=== PATIENT | male | born 1960 | race Caucasian/White ===

== ENCOUNTER 2018-07-07 10:41 | Observation (INO) ==
[2018-07-07] MEDS ORDERED: NITROGLYCERIN 2% OINTMENT 30GM TUBE EXT ONE (11:18)
--- NOTE | 2018-07-07 11:24 | Emergency Department Note ---
History of Present Illness General Chief complaint: Chest Pain Time Seen by Provider: 07/07/18 11:06 History of Present Illness Maximum Pain Intensity: 5 This is a 58-year-old male presenting to the emergency department with left- sided chest pain for the past 4-5 hours. The patient states that he awoke this morning around 6 AM and by 6:30 AM he began having heart palpitations. He stat es that his heart was racing around 110-120 bpm. This lasted for 15-20 minutes before resolving. He states after the episode of palpitations he began having a dull, heavy, nonradiating left-sided chest pain. The patient does have a history of heart attacks with 2 coronary stents 3 or 4 years ago. The patient is a every day smoker. He does not have recent travel history. He does also report a history of anxiety, and while this was going on he had numbness in his hands bilaterally. The patient also admits to trying methamphetamine for the first time last night, however this was greater than 10 hours before symptoms started. The patient rates his current discomfort a 5/10. He did take 325+324 mg aspirin prior to arrival. He drove himself to a local urgent care clinic, where he called EMS, and was given 3 doses of nitroglycerin. This did mildly improve his symptoms, however they persist. He does not have recent illness. Home Medications Home Medications Medication Instructions Recorded Confirmed Type atorvastatin [Lipitor] 40 mg PO DAILY 07/07/18 07/07/18 History carvedilol [Coreg] 6.25 mg PO BID 07/07/18 07/07/18 History oxycodone-acetaminophen 1 tab PO Q6H PRN 07/07/18 07/07/18 History prasugrel [Effient] 10 mg PO DAILY 07/07/18 07/07/18 History atorvastatin 40 mg PO DAILY 30 Days #30 tab 07/08/18 Rx metoprolol succinate 25 mg PO QAM 30 Days #30 tab 07/08/18 Rx nitroglycerin [Nitrostat] 0.4 mg SUBLINGUAL .q5min PRN #7 tab 07/08/18 Rx pantoprazole 40 mg PO QAM 30 Days #30 tab 07/08/18 Rx quetiapine 25 mg PO HS 30 Days #30 tab 07/08/18 Rx ramipril 5 mg PO BID 30 Days #60 cap 07/08/18 Rx tamsulosin 0.4 mg PO HS 30 Days #30 cap 07/08/18 Rx Allergies Allergy/AdvReac Type Severity Reaction Status Date / Time ciprofloxacin AdvReac Unknown Unverified 07/07/18 14:43 Past Med/Surg History Medical History Right hip pain (Acute) Surgical History Stented coronary artery Social History Preferred Language: Occitan Communication Ability: Effective Beliefs That Will Affect Care: None Current Living Situation: Alone Other Information That Helps Us Care for You: No Feels Safe at Home: Yes Safety Concerns: Feels Safe At This Time Smoking Status: Current every day smoker Hx Alcohol Use: Yes (2-3 beers a day about 3-4x/week) Hx Substance Use: Yes (as above) Review of Systems A total of 10 systems reviewed and were otherwise negative Physical Exam Vital Signs Vital Signs - 24 hr 07/07/18 13:00 07/07/18 13:30 07/07/18 14:00 Temperature Temperature Source Pulse Rate 94 H 91 H 90 Pulse Rate [Left] Pulse Rate from SpO2 Sensor 96 H 89 91 H Respiratory Rate 19 18 20 Respiratory Effort / Characteristics Respiratory Depth Respiratory Pattern Blood Pressure 148/94 H 142/99 H 143/92 H Blood Pressure [Right Arm] Blood Pressure Mean 112 113 109 Blood Pressure Mean [Right Arm] Pulse Oximetry 97 96 96 Oxygen Delivery Method 07/07/18 14:30 07/07/18 15:47 07/07/18 16:11 Temperature 36.5 C Temperature Source Oral Pulse Rate 98 H Pulse Rate [Left] 83 Pulse Rate from SpO2 Sensor 102 H Respiratory Rate 18 20 Respiratory Effort / Characteristics Non-Labored Spontaneous Respiratory Depth Normal Respiratory Pattern Regular Blood Pressure 145/98 H Blood Pressure [Right Arm] 135/88 Blood Pressure Mean 113 Blood Pressure Mean [Right Arm] 103 Pulse Oximetry 95 98 Oxygen Delivery Method Room Air 07/07/18 17:58 07/07/18 23:00 07/08/18 01:13 Temperature 36.8 C Temperature Source Oral Pulse Rate 79 96 H Pulse Rate [Left] 91 H Pulse Rate from SpO2 Sensor Respiratory Rate 17 Respiratory Effort / Characteristics Respiratory Depth Respiratory Pattern Blood Pressure Blood Pressure [Right Arm] 122/80 Blood Pressure Mean Blood Pressure Mean [Right Arm] 94 Pulse Oximetry 97 Oxygen Delivery Method Room Air 07/08/18 03:00 07/08/18 07:12 07/08/18 08:56 Temperature 36.9 C 36.6 C Temperature Source Oral Oral Pulse Rate 82 Pulse Rate [Left] 82 80 Pulse Rate from SpO2 Sensor Respiratory Rate 17 18 Respiratory Effort / Characteristics Respiratory Depth Respiratory Pattern Blood Pressure Blood Pressure [Right Arm] 122/82 147/97 H Blood Pressure Mean Blood Pressure Mean [Right Arm] 95 113 Pulse Oximetry 96 98 Oxygen Delivery Method VITALS: Vitals are noted on the nurse's note and reviewed by myself. Vital signs stable. GENERAL: Well-developed, well-nourished, white male, who is in no acute distress and resting comfortably. Patient is cooperative with the examination. HEAD: Normocephalic atraumatic. EYES: Pupils equal round and reactive to light and accommodation. Conjunctivae without injection, sclerae without icterus. Extraocular movements intact. NOSE: Patent, turbinates without inflammation or discharge. MOUTH: Mucous membranes moist. Tonsils are not enlarged. Pharynx without erythema, blood, or exudate. Uvula midline. Airway patent. NECK: Supple without nuchal rigidity. No lymphadenopathy. No thyromegaly. Cervical spine is nontender. HEART: Regular rate and rhythm without murmurs gallops or rubs. LUNGS: Clear to auscultation bilaterally without wheezes, rales or rhonchi. No retractions or accessory muscle use. ABDOMEN: Positive normal bowel sounds x 4. Soft, nontender, without masses or organomegaly. No guarding or rebound tenderness. MUSCULOSKELETAL: No muscle atrophy, erythema, or edema noted. Full range of motion in all extremities. No tenderness to palpation. Normal gait. Strength 5/5 throughout. NEURO: Patient was alert and oriented to person place and time. CN II through XII grossly intact. SKIN: The skin was without rashes, erythema, edema, or bruising. Capillary refill less than 2 seconds. Course Administered Medications Atorvastatin Calcium (Lipitor) 40 mg PO DAILY [facility] Stop: 08/07/18 08:59 Last Admin: 07/08/18 09:28 Dose: 40 mg Documented by: [id number] Admin: 07/07/18 20:48 Dose: 40 mg Documented by: [id number] Enalapril Maleate (Vasotec) 20 mg PO BID [facility] Stop: 08/06/18 20:59 Last Admin: 07/08/18 08:16 Dose: 20 mg Documented by: [id number] Admin: 07/07/18 20:48 Dose: Not Given Documented by: [id number] Miscellaneous (Remove Nicoderm Patch) 1 ea N/A HS [facility] Stop: 08/06/18 20:59 Last Admin: 07/07/18 20:50 Dose: Not Given Documented by: [id number] Nicotine ([facility]oderm Cq) [facility] Stop: 08/06/18 17:44 Last Admin: 07/08/18 08:16 Dose: 21 mg Documented by: [id number] Admin: 07/07/18 18:38 Dose: 21 mg Documented by: [id number] Pantoprazole Sodium (Protonix) 40 [facility] Stop: 07/11/18 09:01 Last Admin: 07/08/18 12:24 Dose: 40 mg Documented by: [id number] Discontinued Medications Carvedilol (Coreg) 6.25 mg PO BID [facility] Stop: 08/06/18 20:59 Last Admin: 07/08/18 08:16 Dose: 6.25 mg Documented by: [id number] Admin: 07/07/18 20:49 Dose: 6.25 mg Documented by: [id number] Sodium Chloride (Nss 1000ml) 1,000 mls @ 999 mls/hr IV .Q1H1M [facility] Stop: 07/07/18 12:30 Last Infusion: 07/07/18 12:49 Dose: 0 mls/hr Documented by: [id number] Admin: 07/07/18 11:39 Dose: 999 mls/hr Documented by: [id number] Nitroglycerin (Nitro-Bid 2%) 1 inch EXT NOW ONE Stop: 07/07/18 11:19 Last Admin: 07/07/18 11:39 Dose: 1 inch Documented by: [id number] Prasugrel (Effient) 10 mg PO DAILY [facility] Stop: 08/07/18 08:59 Last Admin: 07/08/18 08:16 Dose: 10 mg Documented by: [id number] Tamsulosin HCl (Flomax) 0.4 mg PO NOW STA Stop: 07/07/18 20:14 Last Admin: 07/07/18 20:49 Dose: 0.4 mg Documented by: [id number] Medical Decision Making Differential Diagnosis Differential diagnosis includes, but is not limited to: Myocardial infarction, dysrhythmia, pericarditis, pneumothorax, aortic aneurysm/dissection, DVT/PE, anxiety, GERD, PUD, electrolyte imbalance, thyroid disorder, pneumonia, bronchitis, pancreatitis, and others Laboratory Data Result diagrams: 07/08/18 08:40 07/08/18 08:40 Lab Results 07/07/18 07/07/18 07/07/18 Range/Units 10:11 10:11 10:11 WBC 4.93 (4.8-10.8) K/uL RBC 5.32 (4.7-6.1) M/uL Hgb 16.6 (14.0-18.0) g/dL Hct 48.0 (42-52) % MCV 90.2 (80-100) fL MCH 31.2 (25-34) pg MCHC 34.6 (32-36) g/dL RDW Std Deviation 43.1 (36.4-46.3) fL RDW Coeff of Nasim 13.2 (11.5-14.5) % Plt Count 194 (130-400) K/uL MPV 9.6 (7.4-10.4) fL Immature Gran % (Auto) 0.2 % Neut % (Auto) 40.6 % Lymph % (Auto) 44.2 % [place] % (Auto) 12.0 % Eos % (Auto) 2.0 % Baso % (Auto) 1.0 % Immature Gran # (Auto) 0.01 (0.00-0.02) K/uL Neut # (Auto) 2.00 (1.4-6.5) K/uL Lymph # (Auto) 2.18 (1.2-3.4) K/uL [place] # (Auto) 0.59 (0.11-0.59) K/uL Eos # (Auto) 0.10 (0-0.5) K/uL Baso # (Auto) 0.05 (0-0.2) K/uL D-Dimer 400 (0-500) ug/L FEU Sodium 140 (136-145) mmol/L Potassium 3.3 L (3.5-5.1) mmol/L Chloride 105 (98-107) mmol/L Carbon Dioxide 32 (21-32) mmol/L Anion Gap 3.0 (3-11) BUN 10 (7-18) mg/dl Creatinine 0.75 (0.6-1.4) mg/dl Est Cr Clr Drug Dosing 101.6 ml/min Est GFR ( Amer) 118.0 Est GFR (Non-Af Amer) 101.8 BUN/Creatinine Ratio 13.2 (10-20) Glucose 73 (70-99) mg/dl Calcium 8.5 (8.5-10.1) mg/dl Magnesium 2.0 (1.8-2.4) mg/dl Total Bilirubin 0.5 (0.2-1) mg/dl AST 20 (15-37) U/L ALT 15 (12-78) U/L Alkaline Phosphatase 76 (45-117) U/L Troponin I < 0.015 (0-0.045) ng/ml Total Protein 7.1 (6.4-8.2) gm/dl Albumin 3.6 (3.4-5.0) gm/dl Globulin 3.5 (2.5-4.0) gm/dl Albumin/Globulin Ratio 1.0 (0.9-2) Triglycerides (0-150) mg/dl Cholesterol (0-200) mg/dl LDL Cholesterol, Calc mg/dl VLDL Cholesterol, Calc mg/dl HDL Cholesterol mg/dl Cholesterol/HDL Ratio Lipase 138 (73-393) U/L Folate (>5.38) ng/ml Urine Color Urine Appearance (Clear) Urine pH (4.5-7.5) Ur Specific Pearce (1.000-1.030) Urine Protein (Negative) Urine Glucose (UA) (Negative) Urine Ketones (Negative) Urine Blood (Negative) Urine Nitrite (Negative) Urine Bilirubin (Negative) Urine Urobilinogen (Negative) Ur Leukocyte Esterase (Negative) Urine Opiates Screen (Neg) Ur Methadone, Qual (Neg) Urine Barbiturates (Neg) Ur Phencyclidine (PCP) (Neg) U Amphetamin/Meth Scrn (Neg) MDMA (Ecstasy) Screen (Neg) U Benzodiazepines Scrn (Neg) Ur Cocaine Metabolite (Neg) U Marijuana (THC) Screen (Neg) Hepatitis C Ab Screen (Neg) 07/07/18 07/07/18 07/07/18 Range/Units 10:11 13:05 13:05 WBC (4.8-10.8) K/uL RBC (4.7-6.1) M/uL Hgb (14.0-18.0) g/dL Hct (42-52) % MCV (80-100) fL MCH (25-34) pg MCHC (32-36) g/dL RDW Std Deviation (36.4-46.3) fL RDW Coeff of Nasim (11.5-14.5) % Plt Count (130-400) K/uL MPV (7.4-10.4) fL Immature Gran % (Auto) % Neut % (Auto) % Lymph % (Auto) % [place] % (Auto) % Eos % (Auto) % Baso % (Auto) % Immature Gran # (Auto) (0.00-0.02) K/uL Neut # (Auto) (1.4-6.5) K/uL Lymph # (Auto) (1.2-3.4) K/uL [place] # (Auto) (0.11-0.59) K/uL Eos # (Auto) (0-0.5) K/uL Baso # (Auto) (0-0.2) K/uL D-Dimer (0-500) ug/L FEU Sodium (136-145) mmol/L Potassium (3.5-5.1) mmol/L Chloride (98-107) mmol/L Carbon Dioxide (21-32) mmol/L Anion Gap (3-11) BUN (7-18) mg/dl Creatinine (0.6-1.4) mg/dl Est Cr Clr Drug Dosing ml/min Est GFR ( Amer) Est GFR (Non-Af Amer) BUN/Creatinine Ratio (10-20) Glucose (70-99) mg/dl Calcium (8.5-10.1) mg/dl Magnesium (1.8-2.4) mg/dl Total Bilirubin (0.2-1) mg/dl AST (15-37) U/L ALT (12-78) U/L Alkaline Phosphatase (45-117) U/L Troponin I (0-0.045) ng/ml Total Protein (6.4-8.2) gm/dl Albumin (3.4-5.0) gm/dl Globulin (2.5-4.0) gm/dl Albumin/Globulin Ratio (0.9-2) Triglycerides (0-150) mg/dl Cholesterol (0-200) mg/dl LDL Cholesterol, Calc mg/dl VLDL Cholesterol, Calc mg/dl HDL Cholesterol mg/dl Cholesterol/HDL Ratio Lipase (73-393) U/L Folate (>5.38) ng/ml Urine Color Yellow Urine Appearance Clear (Clear) Urine pH >= 9.0 H (4.5-7.5) Ur Specific Pearce 1.014 (1.000-1.030) Urine Protein Negative (Negative) Urine Glucose (UA) Negative (Negative) Urine Ketones Negative (Negative) Urine Blood Negative (Negative) Urine Nitrite Negative (Negative) Urine Bilirubin Negative (Negative) Urine Urobilinogen Negative (Negative) Ur Leukocyte Esterase Negative (Negative) Urine Opiates Screen Neg (Neg) Ur Methadone, Qual Neg (Neg) Urine Barbiturates Neg (Neg) Ur Phencyclidine (PCP) Neg (Neg) U Amphetamin/Meth Scrn Pos H (Neg) MDMA (Ecstasy) Screen Neg (Neg) U Benzodiazepines Scrn Neg (Neg) Ur Cocaine Metabolite Neg (Neg) U Marijuana (THC) Screen Neg (Neg) Hepatitis C Ab Screen Neg (Neg) 07/07/18 07/07/18 07/07/18 Range/Units 16:32 16:32 22:10 WBC (4.8-10.8) K/uL RBC (4.7-6.1) M/uL Hgb (14.0-18.0) g/dL Hct (42-52) % MCV (80-100) fL MCH (25-34) pg MCHC (32-36) g/dL RDW Std Deviation (36.4-46.3) fL RDW Coeff of Nasim (11.5-14.5) % Plt Count (130-400) K/uL MPV (7.4-10.4) fL Immature Gran % (Auto) % Neut % (Auto) % Lymph % (Auto) % [place] % (Auto) % Eos % (Auto) % Baso % (Auto) % Immature Gran # (Auto) (0.00-0.02) K/uL Neut # (Auto) (1.4-6.5) K/uL Lymph # (Auto) (1.2-3.4) K/uL [place] # (Auto) (0.11-0.59) K/uL Eos # (Auto) (0-0.5) K/uL Baso # (Auto) (0-0.2) K/uL D-Dimer (0-500) ug/L FEU Sodium (136-145) mmol/L Potassium (3.5-5.1) mmol/L Chloride (98-107) mmol/L Carbon Dioxide (21-32) mmol/L Anion Gap (3-11) BUN (7-18) mg/dl Creatinine (0.6-1.4) mg/dl Est Cr Clr Drug Dosing ml/min Est GFR ( Amer) Est GFR (Non-Af Amer) BUN/Creatinine Ratio (10-20) Glucose (70-99) mg/dl Calcium (8.5-10.1) mg/dl Magnesium (1.8-2.4) mg/dl Total Bilirubin (0.2-1) mg/dl AST (15-37) U/L ALT (12-78) U/L Alkaline Phosphatase (45-117) U/L Troponin I < 0.015 < 0.015 (0-0.045) ng/ml Total Protein (6.4-8.2) gm/dl Albumin (3.4-5.0) gm/dl Globulin (2.5-4.0) gm/dl Albumin/Globulin Ratio (0.9-2) Triglycerides 69 (0-150) mg/dl Cholesterol 144 (0-200) mg/dl LDL Cholesterol, Calc 64 mg/dl VLDL Cholesterol, Calc 14 mg/dl HDL Cholesterol 66 mg/dl Cholesterol/HDL Ratio 2 Lipase (73-393) U/L Folate 19.70 (>5.38) ng/ml Urine Color Urine Appearance (Clear) Urine pH (4.5-7.5) Ur Specific Pearce (1.000-1.030) Urine Protein (Negative) Urine Glucose (UA) (Negative) Urine Ketones (Negative) Urine Blood (Negative) Urine Nitrite (Negative) Urine Bilirubin (Negative) Urine Urobilinogen (Negative) Ur Leukocyte Esterase (Negative) Urine Opiates Screen (Neg) Ur Methadone, Qual (Neg) Urine Barbiturates (Neg) Ur Phencyclidine (PCP) (Neg) U Amphetamin/Meth Scrn (Neg) MDMA (Ecstasy) Screen (Neg) U Benzodiazepines Scrn (Neg) Ur Cocaine Metabolite (Neg) U Marijuana (THC) Screen (Neg) Hepatitis C Ab Screen (Neg) 07/08/18 07/08/18 07/08/18 Range/Units 08:40 08:40 10:11 WBC 5.12 (4.8-10.8) K/uL RBC 4.94 (4.7-6.1) M/uL Hgb 15.5 (14.0-18.0) g/dL Hct 45.0 (42-52) % MCV 91.1 (80-100) fL MCH 31.4 (25-34) pg MCHC 34.4 (32-36) g/dL RDW Std Deviation 44.6 (36.4-46.3) fL RDW Coeff of Nasim 13.5 (11.5-14.5) % Plt Count 166 (130-400) K/uL MPV 9.5 (7.4-10.4) fL Immature Gran % (Auto) % Neut % (Auto) % Lymph % (Auto) % [place] % (Auto) % Eos % (Auto) % Baso % (Auto) % Immature Gran # (Auto) (0.00-0.02) K/uL Neut # (Auto) (1.4-6.5) K/uL Lymph # (Auto) (1.2-3.4) K/uL [place] # (Auto) (0.11-0.59) K/uL Eos # (Auto) (0-0.5) K/uL Baso # (Auto) (0-0.2) K/uL D-Dimer 380 (0-500) ug/L FEU Sodium 141 (136-145) mmol/L Potassium 3.6 (3.5-5.1) mmol/L Chloride 110 H (98-107) mmol/L Carbon Dioxide 27 (21-32) mmol/L Anion Gap 4.0 (3-11) BUN 13 (7-18) mg/dl Creatinine 0.74 (0.6-1.4) mg/dl Est Cr Clr Drug Dosing 103.0 ml/min Est GFR ( Amer) 118.7 Est GFR (Non-Af Amer) 102.4 BUN/Creatinine Ratio 17.4 (10-20) Glucose 131 H (70-99) mg/dl Calcium 8.3 L (8.5-10.1) mg/dl Magnesium 2.1 (1.8-2.4) mg/dl Total Bilirubin (0.2-1) mg/dl AST (15-37) U/L ALT (12-78) U/L Alkaline Phosphatase (45-117) U/L Troponin I (0-0.045) ng/ml Total Protein (6.4-8.2) gm/dl Albumin (3.4-5.0) gm/dl Globulin (2.5-4.0) gm/dl Albumin/Globulin Ratio (0.9-2) Triglycerides (0-150) mg/dl Cholesterol (0-200) mg/dl LDL Cholesterol, Calc mg/dl VLDL Cholesterol, Calc mg/dl HDL Cholesterol mg/dl Cholesterol/HDL Ratio Lipase (73-393) U/L Folate (>5.38) ng/ml Urine Color Urine Appearance (Clear) Urine pH (4.5-7.5) Ur Specific Pearce (1.000-1.030) Urine Protein (Negative) Urine Glucose (UA) (Negative) Urine Ketones (Negative) Urine Blood (Negative) Urine Nitrite (Negative) Urine Bilirubin (Negative) Urine Urobilinogen (Negative) Ur Leukocyte Esterase (Negative) Urine Opiates Screen (Neg) Ur Methadone, Qual (Neg) Urine Barbiturates (Neg) Ur Phencyclidine (PCP) (Neg) U Amphetamin/Meth Scrn (Neg) MDMA (Ecstasy) Screen (Neg) U Benzodiazepines Scrn (Neg) Ur Cocaine Metabolite (Neg) U Marijuana (THC) Screen (Neg) Hepatitis C Ab Screen (Neg) Imaging Data Radiologist's Impression: XR chest 1V portable CLINICAL HISTORY: Atypical chest pain COMPARISON STUDY: No previous studies for comparison. FINDINGS: The heart is normal in size. There is no failure. There is no focal pulmonary consolidation. There are no pleural effusions. There are postsurgical changes present within the cervical spine.[ IMPRESSION: No active disease in the chest. ECG Data Indication: chest pain Additional Comments: Sinus rhythm with sinus arrhythmia with short MA @[address] Elevation Otherwise normal ECG No previous ECGs available MDM Narrative Physical exam and history were performed. Nursing notes, EMR, and Medication List were personally reviewed. Patient appears to have chest pain symptoms bring him to the emergency department today. EKG is as above and was sinus rhythm without acute ST elevation. IV access was established and labs were obtained. The patient has already had aspirin and nitroglycerin. He was given Nitropaste here in the department. He was gently hydrated with normal saline and placed on the campus monitor. The patient's blood work is as above and was reviewed. He does not have a significantly elevated white blood cell count, gross anemia, bandemia, or sign ificant electrolyte imbalance. Lipase and transaminases are not diagnostic. Urine without evidence for infection. Drug of abuse screen was positive for methamphetamine, which was expected. Troponin and d-dimer x1 are both negative. Chest x-ray was reviewed by myself and radiology as showing no acute process. On reevaluation the patient continues to have chest discomfort. He believes that he has followed with the [facility] cardiology team in the past, however he does not have any records in the [facility] medical record to confirm this. I suspect the patient is more closely associated with the [facility] system as he lives in this area. The case was discussed with my attending physician and case management. The patient appears to have chest pain with a significant past history of coronary artery disease. He does not appear well for discharge home and the case was ultimately discussed with the [facility] hospitalist service based on the patient's insurance. The hospitalist team did evaluate the patient here in the department. Please see their note for further patient care and disposition. The chart was completed utilizing [employer] Speech Voice Recognition Software. Grammatical errors, random word insertions, pronoun errors, and incomplete sentences are an occasional consequence of this system due to software limitations, ambient noise, and hardware issues. Any formal questions or concerns about the content, text, or information contained within the body of this dictation should be directly addressed to the provider for clarification. . Impression & Plan Chest pain, Methamphetamine abuse, CAD (coronary artery disease) Discharge Plan Visit Data *Final* Discharge Date/Time: 07/07/18 16:09 Chief Complaint: Chest Pain ED Provider: Adrián Gómez ED Midlevel Provider: Leroy Hernandes Discharge Problem: Chest pain, Methamphetamine abuse, CAD (coronary artery disease) Patient Disposition: Admitted As Inpatient Condition: Good Discharge Instructions Interventions: ED Discharge Assessment Last Done: 07/07/18 16:09 Discharge Problem: Chest pain Qualifiers: Chest pain type: unspecified Qualified Code(s): R07.9 - Chest pain, unspecified
--- NOTE | 2018-07-07 11:25 | XRay Report ---
XR chest 1V portable CLINICAL HISTORY: Atypical chest pain COMPARISON STUDY: No previous studies for comparison. FINDINGS: The heart is normal in size. There is no failure. There is no focal pulmonary consolidation . There are no pleural effusions. There are postsurgical changes present within the cervical spine.[ IMPRESSION: No active disease in the chest. Electronically signed by: Dimitri Springer M.D. 07/07/2018 11:24 AM
[2018-07-07 11:28] LABS: Basophils # (auto) 0.05 K/uL (0-0.2); Hemoglobin 16.6 g/dL (14.0-18.0); Immature Granulocytes # (auto) 0.01 K/uL (0.00-0.02); Immature Granulocytes % (auto) 0.2 %; Lymphocytes # (auto) 2.18 K/uL (1.2-3.4); Lymphocytes % (auto) 44.2 %; Mean Corpuscular Hgb Conc 34.6 g/dL (32-36); Mean Corpuscular Volume 90.2 fL (80-100); Mean Platelet Volume 9.6 fL (7.4-10.4); Monocytes # (auto) 0.59 K/uL (0.11-0.59); Neutrophils % (auto) 40.6 %; Platelet Count 194 K/uL (130-400); RDW Coefficient of Variation 13.2 % (11.5-14.5); RDW Standard Deviation 43.1 fL (36.4-46.3); Red Blood Count 5.32 M/uL (4.7-6.1); White Blood Count 4.93 K/uL (4.8-10.8)
[2018-07-07] MEDS ORDERED: SODIUM CHLORIDE 0.9% 1000ML 1,000 ML IV SCH (11:30)
[2018-07-07 11:35] LABS: Alanine Aminotransferase 15 U/L (12-78); Albumin Level 3.6 gm/dl (3.4-5.0); Aspartate Aminotransferase 20 U/L (15-37); BUN Creatinine Ratio 13.2 (10-20); Blood Urea Nitrogen 10 mg/dl (7-18); Calcium 8.5 mg/dl (8.5-10.1); Carbon Dioxide 32 mmol/L (21-32); Chloride 105 mmol/L (98-107); Creatinine Clr Calc Pharmacy 101.6 ml/min; Est GFR (Non-African American) 101.8; Glucose 73 mg/dl (70-99); Potassium 3.3 mmol/L (3.5-5.1); Sodium 140 mmol/L (136-145)
[2018-07-07 11:40] LABS: Alkaline Phosphatase 76 U/L (45-117); Bilirubin,Total 0.5 mg/dl (0.2-1); Globulin 3.5 gm/dl (2.5-4.0); Total Protein 7.1 gm/dl (6.4-8.2); Troponin I < 0.015 ng/ml (0-0.045)
[2018-07-07 11:41] LABS: D Dimer 400 ug/L FEU (0-500)
[2018-07-07 13:21] LABS: Appearance Urine Clear (Clear); Bilirubin Urine Negative (Negative); Blood Urine Negative (Negative); Color Urine Yellow; Glucose Urine UA Negative (Negative); Ketones Urine Negative (Negative); Leukocyte Esterase Urine Negative (Negative); Nitrite Urine Negative (Negative); Protein Urine Negative (Negative); Specific Gravity Urine 1.014 (1.000-1.030); Urobilinogen Urine Negative (Negative); pH Urine >= 9.0 (4.5-7.5)
[2018-07-07 13:54] LABS: Amphetamines+Metham, Urine Pos (Neg); Barbiturates, Urine Neg (Neg); Benzodiazepine, Urine Neg (Neg); Cocaine, Urine Neg (Neg); MDMA (Ecstacy), Urine Neg (Neg); Methadone, Urine Neg (Neg); Opiate, Urine Neg (Neg); Phencyclidine, Urine Neg (Neg)
--- NOTE | 2018-07-07 15:39 | History & Physical Report ---
Date of Service July 07, 2018 Assessment & Plan (1) Chest pain: With palpitations Uncertain etiology, true ACS vs anxiety attacks vs meth use vs related to missing carvedilol Trop neg x1, serials pending EKG WNL CXR WNL CBC, PRP WNL ECHO pending (2) Hyperlipidemia: States sporadic use of statin Lipid panel pending (3) CAD (coronary artery disease): Stents x2 in 2014 Done at [facility] Has been out of carvedilol x4 days, will need rx on d/c (4) Anxiety: h/o same (5) Methamphetamine abuse: Utox + for meth, admits to using "just a little bit" Upon further questioning this is a somewhat regular habit for him Advised against further use (6) GERD (gastroesophageal reflux disease): continue home meds (7) Tobacco use disorder: Nicotine patch (8) Alcohol use: Denies daily use, will put on risk screening (9) DVT prophylaxis: SCDs History of Present Illness Primary Care Provider: Mike Shoemaker 58 y/o M c/o chest pain. 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 He states that he took some deep breaths to help but it did not. He arrived at his friend's home and was noted to not look well by she and her . He told them he would be fine and they left for work. He was able to get the older child on the bus but then around 8:30a he started to have nausea and then L sided chest pain. This persisted so he went to the in [place]. They sent him via EMS to our ED. Pt was given nitro and aspirin by EMS and now feels tired. He was given nitro paste in the ED. He states he feels nauseated still and some L sided chest pain, but improved. He states this pain "took my breath away" but no elvin SOB. He states that yesterday AM he had palpitations, but no pain. He states he frequently has palpitations in the mornings. Pt has hx of [place] with stents in 2013 at [facility]. He states that his pain today was nowhere near as intense as the pain he had with the NH. He states he had a chemical stress test about 1 year ago that was normal. He states he is seen frequently in the ED at [place] for palpitations and is told that he is having anxiety attacks. He was started on vistaril for this recently but states it is no help. Pt admits to doing meth last night. He states he had renters in a room in his home and he found "just a little piece so I wanted to see if it was meth" when he was in their room last night. His last time doing meth was about 3 weeks ago. The time before was about 3 weeks prior to that. He states he does not do meth regularly "because my $800 a month doesn't allow for that". He states that he was not "in psychosis" last night "because it wasn't that much". Pt is supposed to be taking carvedilol but has been out for about 4 days. Pt denies fever, abd pain, v/c/d, LE pain or swelling. Allergies Allergy/AdvReac Type Severity Reaction Status Date / Time ciprofloxacin AdvReac Unknown Unverified 07/07/18 14:43 Home Medications Home Medications Medication Instructions Recorded Confirmed Type atorvastatin [Lipitor] 40 mg PO DAILY 07/07/18 07/07/18 History carvedilol [Coreg] 6.25 mg PO BID 07/07/18 07/07/18 History oxycodone-acetaminophen 1 tab PO Q6H PRN 07/07/18 07/07/18 History prasugrel [Effient] 10 mg PO DAILY 07/07/18 07/07/18 History ramipril 5 mg PO BID 07/07/18 07/07/18 History Past Med/Surg History Medical History Right hip pain (Acute) Surgical History Stented coronary artery Social History Preferred Language: Korean Communication Ability: Effective Beliefs That Will Affect Care: None Current Living Situation: Alone Other Information That Helps Us Care for You: No Feels Safe at Home: Yes Safety Concerns: Feels Safe At This Time Smoking Status: Current every day smoker Hx Alcohol Use: Yes (2-3 beers a day about 3-4x/week) Hx Substance Use: Yes (as above) Review of Systems Pertinent positives and negatives reviewed in HPI--all others negative Physical Exam Vital Signs (Past 24 Hours): Last Vital Signs Temp 37 C 07/07/18 10:49 Pulse 98 H 07/07/18 14:30 Resp 18 07/07/18 14:30 BP 145/98 H 07/07/18 14:30 Pulse Ox 95 07/07/18 14:30 Constitutional: WD/WN, vitals as above Eyes: normal visual wright by confrontation and + anicteric sclerae Neck: normal visual inspection and trachea midline Respiratory: normal respiratory effort, lungs clear to auscultation Cardiovascular: Rate/Rhythm: regular rate and regular rhythm Gastrointestinal (Abdomen): Inspection/Auscultation: abdomen not distended Percussion/Palpation: abdomen soft; abdomen nontender Musculoskeletal: Head/Neck/Chest: normocephalic and head atraumatic negative for edema, peripheral pulses intact Skin: no rashes, warm and dry Neurologic: awake; not confused Speech / Cognition: normal speech Psychiatric: A+Ox3, euthymic affect Results & Data Diagnostic Findings CXR: neg for acute Code Status & VTE Plan Code Status Full code VTE Prophylaxis Plan VTE Prophylaxis will be ordered: Yes
[2018-07-07] MEDS ORDERED: LORazepam 1 MG TAB PO PRN ×2 (16:05)
[2018-07-07] MEDS ORDERED: LORazepam 1 MG/2 ML VIAL IV PRN (16:05)
[2018-07-07] MEDS ORDERED: MAGNESIUM HYDROXIDE SUSP 30 ML UDC PO PRN (16:16)
[2018-07-07] MEDS ORDERED: ACETAMINOPHEN 325 MG TAB PO PRN (16:16)
[2018-07-07] MEDS ORDERED: NITROGLYCERIN SL 0.4 MG/TAB TAB SL PRN (16:16)
[2018-07-07] MEDS ORDERED: ONDANSETRON INJ 2 MG/ML 2 ML VIAL IV PRN (16:16)
[2018-07-07] MEDS ORDERED: OXYCODONE/APAP 7.5/325MG TAB PO PRN (16:16)
[2018-07-07 17:04] LABS: Chol HDL Ratio 2; Cholesterol 144 mg/dl (0-200); HDL Cholesterol 66 mg/dl; LDL Cholesterol Calculated 64 mg/dl; Triglycerides 69 mg/dl (0-150); Troponin I < 0.015 ng/ml (0-0.045); VLDL Cholesterol 14 mg/dl
[2018-07-07] MEDS: NICOTINE 21 MG/24 HR TDSY TD SCH (18:38)
[2018-07-07] MEDS ORDERED: TAMSULOSIN HCL 0.4 MG CAP PO STA (20:13)
[2018-07-07] MEDS: ATORVASTATIN 40 MG TAB PO SCH (20:48)
[2018-07-07] MEDS: ENALAPRIL MALEATE 10 MG TAB PO SCH (20:48)
[2018-07-07] MEDS: CARVEDILOL 6.25 MG TAB PO SCH (20:49)
[2018-07-08] MEDS: CARVEDILOL 6.25 MG TAB PO SCH (08:16)
[2018-07-08] MEDS: NICOTINE 21 MG/24 HR TDSY TD SCH (08:16)
[2018-07-08] MEDS: ENALAPRIL MALEATE 10 MG TAB PO SCH (08:16)
[2018-07-08 08:55] LABS: Hemoglobin 15.5 g/dL (14.0-18.0); Mean Corpuscular Hgb Conc 34.4 g/dL (32-36); Mean Corpuscular Volume 91.1 fL (80-100); Mean Platelet Volume 9.5 fL (7.4-10.4); Platelet Count 166 K/uL (130-400); RDW Coefficient of Variation 13.5 % (11.5-14.5); RDW Standard Deviation 44.6 fL (36.4-46.3); Red Blood Count 4.94 M/uL (4.7-6.1); White Blood Count 5.12 K/uL (4.8-10.8)
[2018-07-08] MEDS ORDERED: PRASugrel TAB 10 MG TAB PO SCH (09:00)
[2018-07-08 09:25] LABS: BUN Creatinine Ratio 17.4 (10-20); Calcium 8.3 mg/dl (8.5-10.1); Est GFR (African American) 118.7; Est GFR (Non-African American) 102.4; Magnesium 2.1 mg/dl (1.8-2.4); Potassium 3.6 mmol/L (3.5-5.1)
[2018-07-08] MEDS: ATORVASTATIN 40 MG TAB PO SCH (09:28)
[2018-07-08] MEDS ORDERED: PANTOprazole 40 MG TAB PO SCH (10:15)
[2018-07-08 10:43] LABS: D Dimer 380 ug/L FEU (0-500)
[2018-07-08 12:59] VITALS: TEMP 98.2
--- NOTE | 2018-07-08 15:53 | Discharge Summary ---
Date of Service July 08, 2018 Admission HPI Per Admitting Provider 58 y/o M c/o chest pain. 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 He states that he took some deep breaths to help but it did not. He arrived at his friend's home and was noted to not look well by she and her . He told them he would be fine and they left for work. He was able to get the older child on the bus but then around 8:30a he started to have nausea and then L sided chest pain. This persisted so he went to the in [place]. They sent him via EMS to our ED. Pt was given nitro and aspirin by EMS and now feels tired. He was given nitro paste in the ED. He states he feels nauseated still and some L sided chest pain, but improved. He states this pain "took my breath away" but no elvin SOB. He states that yesterday AM he had palpitations, but no pain. He states he frequently has palpitations in the mornings. Pt has hx of [place] with stents in 2013 at [facility]. He states that his pain today was nowhere near as intense as the pain he had with the [place]. He states he had a chemical stress test about 1 year ago that was normal. He states he is seen frequently in the ED at [facility] for palpitations and is told that he is having anxiety attacks. He was started on vistaril for this recently but states it is no help. Pt admits to doing meth last night. He states he had renters in a room in his home and he found "just a little piece so I wanted to see if it was meth" when he was in their room last night. His last time doing meth was about 3 weeks ago. The time before was about 3 weeks prior to that. He states he does not do meth regularly "because my $800 a month doesn't allow for that". He states that he was not "in psychosis" last night "because it wasn't that much". Pt is supposed to be taking carvedilol but has been out for about 4 days. Pt denies fever, abd pain, v/c/d, LE pain or swelling. Admission Exam Per Admitting Provider Constitutional: WD/WN, vitals as above Eyes: normal visual wright by confrontation and + anicteric sclerae Neck: normal visual inspection and trachea midline Respiratory: normal respiratory effort, lungs clear to auscultation Cardiovascular: Rate/Rhythm: regular rate and regular rhythm Gastrointestinal (Abdomen): Inspection/Auscultation: abdomen not distended Percussion/Palpation: abdomen soft; abdomen nontender Musculoskeletal: Head/Neck/Chest: normocephalic and head atraumatic negative for edema, peripheral pulses intact Skin: no rashes, warm and dry Neurologic: awake; not confused Speech / Cognition: normal speech Psychiatric: A+Ox3, euthymic affect Principal Diagnosis Chest Pain Discharge Exam General: Resting comfortably in no apparent distress; A&OX3 HEENT: NC/AT; PERRLA with EOMI; [place] conjunctiva, MMM. Neck: Supple and nontender Cardiac: RRR w/o murmurs, gallops or rubs Lungs: CTA bilaterally; No rhonchi, wheezing, or rales Abdomen: Bowel normoactive X 4; Nontender to palpation Extremities: Warm. No edema present Neuro: No focal weakness Skin: No rash Discharge Data Allergies Allergy/AdvReac Type Severity Reaction Status Date / Time ciprofloxacin AdvReac Unknown Unverified 07/07/18 14:43 Consultations 07/07/18 14:29 ED Decision to Admit Stat Ordered Studies CXR 07/07/18 Hospital Course (1) Chest pain: Cardiac work up, including EKG and Trop x 3, was negative. Chest pain was likely related to anxiety vs. recent methamphetamine use vs. missing cardiac medications vs. GI source. CXR was negative. Echo showed no wall motion abnormalities. Last stress test was ~ 1 year ago. Pt. was instructed to follow up with cardiology as an outpatient. Chest pain resolved by time of discharge on 07/08/18. PPI was started as an outpatient for treatment of acid reflux/concern for ulcer in setting of epigastric pain. He was instructed to avoid use of NSAIDs at home. (2) Hyperlipidemia: Lipid panel was WNL. Pt. was instructed to continue home statin. (3) CAD (coronary artery disease): Stents x2 in 2013 at [place]. Will resume cardiac meds at discharge, inc luding Toprol XL 25 mg daily and Atorvastatin 40 mg daily. (4) Anxiety: Prescription for Ativan 0.5 mg BID x 3 days provided at discharge. (5) Methamphetamine abuse: Urine tox screen +meth. Pt. was advised to discontinue use of illegal substance following discharge. (6) GERD (gastroesophageal reflux disease): Home meds were continued. (7) Tobacco use disorder: Nicotine patch ordered. Pt. was encouraged to discontinue tobacco abuse. (8) Alcohol use: Denies daily use. No evidence of ETOH withdrawal. (9) DVT prophylaxis: SCDs were ordered. Pt. was stable for discharge to home on 07/08/18. Will need to follow up closely with cardiology and PCP. Total Time Total Time Spent Total Time Spent (In Minutes): >30 minutes Total Time Includes: Examination of the Patient Discharge Plan Discharge Items Patient Disposition: Home - Self-Care Reason For Visit: CHEST PAIN Discharge Diagnosis: Chest Pain Condition: Good Discharge Goals: Decrease discomfort, Diagnostic testing, Improve disease control, Improve function and Prevent disease Activity: As commented below Exercise/Sports: Gradually increase as tolerated Driving/Machine Use: No limitations Non-emergency contact: Primary Care Provider and Water Pollution Specialist Call non-emergency contact if: you have any medication questions, your symptoms worsen, your pain is not controlled, your pain is worsening, your pain is unusual for you, your pain is concerning for you and you have a fever Follow-up/Referrals: Mike Shoemaker [Primary Care Provider] - 07/13/18 1:30 pm (Please, follow up with Dr. Shoemaker in the [facility] office, on ThursdayJuly 13 at 1:30 pm. *If you need to change this appointment, call the office at [phone]. ) Diet: Heart Healthy Add Provider Instructions: 1. Chest Pain * Cardiac work up during this admission has been negative. * Your symptoms may be related to anxiety vs. drug abuse vs. stomach/duodenal ulcer. * Please start a proton pump inhibitor, such as Protonix, at home for treatment/prevention of stomach ulcers. * Avoid NSAIDs, including Ibuproften, Aleve, Motrin, etc. * We recommend to discontinue the use of all illegal substances at home, including methamphetamine. * Please schedule a follow up with cardiology (Dr. Madsen) in 1-2 weeks to discuss this hospital admission. * Please schedule an appointment with your family doctor in 1-2 weeks. 2. Prescriptions for medications were sent to your pharmacy (Ramipril, Lipitor, Metoprolol XL, Flomax, Protonix and Seroquel). 3. Please call your family doctor or go to the ER if you develop the following: * Recurrent chest pain or shortness of breath. * Nausea/vomiting or severe watery diarrhea. Prescriptions: New atorvastatin 40 mg Tablet 40 mg PO DAILY 30 Days Qty: 30 RF: 1 tamsulosin 0.4 mg Capsule 0.4 mg PO HS 30 Days Qty: 30 RF: 1 nitroglycerin [Nitrostat] 0.4 mg Tablet, Sublingual 0.4 mg Sublingual .q5min PRN (Reason: chest pain) Qty: 7 RF: 0 metoprolol succinate 25 mg Tablet Extended Release 24 Hr 25 mg PO QAM 30 Days Qty: 30 RF: 0 quetiapine 25 mg Tablet 25 mg PO HS 30 Days Qty: 30 RF: 1 pantoprazole 40 mg Tablet,Delayed Release (Dr/Ec) 40 mg PO QAM 30 Days Qty: 30 RF: 1 lorazepam [Ativan] 0.5 mg tablet 0.5 mg PO BID PRN (Reason: anxiety) Qty: 6 RF: 0 Continued oxycodone-acetaminophen 7.5-325 mg Tablet 1 tab PO Q6H PRN (Reason: Pain) RF: 0 ramipril 5 mg Capsule 5 mg PO BID 30 Days Qty: 60 RF: 0 Discontinued atorvastatin [Lipitor] 40 mg Tablet 40 mg PO DAILY RF: 0 carvedilol [Coreg] 6.25 mg Tablet 6.25 mg PO BID RF: 0 prasugrel [Effient] 10 mg Tablet 10 mg PO DAILY RF: 0 Stand-Alone Forms: Call Back Authorization, [facility] Discharge Orders: Discharge Order (Routine); Ordered 07/08/18 Ordered By: Zoe Chaves Admission Data Admit Date/Time: 07/07/18 15:07 Attending Provider: Ab Malcolm Admit Provider: Leatha Weinberg Primary Care Provider: Mike Shoemaker Other Providers: Leatha Weinberg Service: Telemetry Other Interventions: Discharge Summary Assessment (RN) Last Done: 07/08/18 17:56 Pending Studies at Discharge: No DC Date/Time DO NOT enter until pt leaves facility: 07/08/18 18:17 Supervising Physician Co-Signing Physician Notes Attending Attestation & Discharge Summary: Pt seen/examined, chart reviewed, d/c care plan d/w MARY Chaves. I agree w/ the [place] components of her d/c summary. 58yo male with CAD and polysubstance abuse (etoh, tobacco, meth) who presented with chest pain following ingestion of meth. Telemetry, EKGs, troponins, and echocardiogram were all normal. He did not have recurrent chest pain while hospitalized. Although he has CAD it is likely that his pain was due to the meth use. To be complete we did recommend he follow-up with his graphic arts instructor at [facility] within 1-2 weeks to discuss whether repeat stress testing is necessary (had negative stress test 1 year prior). He will continue on his usual cardiac meds post-discharge. Discharge exam: gen - NAD neck - no JVD heart - RRR, s1, s2, no murmur lungs - CTA b/l chest - no reproducible chest wall pain abd - soft, NT ext - no edema Ab Malcolm MD
[2018-07-08 16:00] VITALS: BP 115/84; O2SAT 94
[2018-07-08 17:58] VITALS: PULSE 89
[2018-07-08] MEDS ORDERED: TAMSULOSIN HCL 0.4 MG CAP PO SCH (21:00)
[2018-07-08] MEDS ORDERED: QUETIAPINE FUMARATE 25 MG TABLET PO SCH (21:00)
[2018-07-09] MEDS ORDERED: METOPROLOL SUCC 25MG EXT REL TAB PO SCH (09:00)
[2018-07-12 13:34] LABS: Amphetamine Urine, Confirm NEGATIVE NG/ML (CUTOF=250)
== END 2018-07-08 18:17 | disposition home or self-care (01) ==
LOC: ED 10:41 → 2W 10:41 → SUATTDRO 15:07 → 2W 16:09